=== PATIENT | male | born 1950 | race African-American/Black ===

== ENCOUNTER → 2019-10-31 | Outpatient (CLI) | payer OTHER ==
[~2019-10-31] VITALS: Ht 182.9 cm; Wt 106.6 kg
[~2019-10-31] MED LIST: ADULT LOW DOSE81 MG PO; AMITIZA 24 MCG24 MC1 PO; ASPIR 8181 MG PO; ASPIRIN325; CADUET 5 MG-401 EACH; CADUET 5 MG-401 EACH PO; DIOVAN40 MG PO; EFFIENT10 MG PO; LIVALO4 MG PO; RYTARY ER 23.71 EACH PO; RYTARY ER 48.71 EACH PO; TOPROL XL50 MG PO; VITAMIN E400 UNIT
--- NOTE | 2019-11-01 14:07 | PATH ---
[facility] [place] [address] PATHOLOGY RPT PROCEDURE Name: TERRY TURNER Room #: REG [facility] M.R.#: [id number] Admission: 10/31/19 Date of : 50 Discharge: Report #: [id number] Path Case #: [id number] [facility] Accession Number: [id number] . 01 Material submitted: . PART A: stomach - BIOPSY OF GASTRITIS TO R/O H. PYLORI PART B: esophagus - BIOPSY OF DISTAL ESOPHAGUS-BARRETTS- TO R/O DYSPLASIA. Modifiers: distal PART C: colon - POLYP AT PROXIMAL TRANSVERSE COLON. Modifiers: proximal, transverse PART D: colon - POLYP AT 60CM . 01 Clinical history: . 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 02 Diagnosis: A. Gastric biopsy, "biopsy gastritis to rule out H. pylori": - Mild chronic reactive gastropathy with mild chronic inflammation. - The immunoperoxidase stain for Helicobacter pylori is negative. . B. 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 - There is no definite evidence of dysplasia or malignancy. - See comment. . C. Colonic mucosa, "polyp at proximal transverse colon": - Fragments of tubular adenoma. - There is no evidence of high-grade dysplasia or malignancy. . D. Colonic mucosa, "polyp at 60 cm": - Fragments of tubular adenoma. - There is no evidence of high-grade dysplasia or malignancy. . 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 02 Comment: This case is also reviewed by Dr. Mara Walls. ([facility]:wet mixer; 11/01/2019) . 02 Electronically signed: . Raymon Lara MD, Pathologist NPI- [id number] . 01 [place] [address] PATHOLOGY RPT PROCEDURE Name: TERRY TURNER JR [id number] Admission: 10/31/19 Date of : 50 Discharge: Report #: [id number] Path Case #: [id number] Gross description: . A. Received in formalin labeled "Terry Turner Jr BX of gastritis," and additionally labeled on the requisition as "to rule out H. pylori," are 2 segments of chen soft tissue measuring 1.0 x 0.3 x 0 point to cm in aggregate dimensions and measuring 0.5 cm each in maximum dimension. The specimen is submitted entirely in cassette A1. . B. Received in formalin labeled "Terry Turner Jr, BX of distal esophagus," and additionally labeled on the requisition as "Nair-to rule out dysplasia," are 5 segments of chen soft tissue measuring 0.9 x 0.9 x 0.2 cm in aggregate dimensions and ranging from 0.3 to 0.5 cm in maximum dimension. The specimen is submitted entirely in cassette B1. . C. Received in formalin labeled "Terry Turner Jr, polyp at proximal transverse," are 4 segments of chen soft tissue measuring 1.0 x 1.0 x 0.5 cm in aggregate dimensions and ranging from 0.4 to 0.8 cm in maximum dimension. The specimen is submitted entirely in cassette . D. Received in formalin labeled "Terry Turner Jr, polyp at 60 cm," are 2 segments of chen soft tissue measuring 1.5 x 0.4 x 0.4 cm in aggregate dimensions and ranging from 0.7 to 0.8 cm in maximum dimension. The specimen is submitted entirely in cassette D1. (TSD; 10/31/2019) TOB/TOB 10/31/2019 2300 Local . 02 Pathologist provided ICD-10: K31.9, K29.50, K21.0, D12.3, D12.6 . 02 CPT . 260846, 123490, 441616, 284703, [id number] Specimen Comment: A courtesy copy of this report has been sent to [phone], [phone] Specimen Comment: [id number] Specimen Comment: Report sent to / DR MCKINNEY [facility]formed at: 01 [facility] [address] [facility] [address], [place] [id number] MD Mauricio Enriquez MD Phone: [phone] Performed at: 02 [facility] [address] [id number] MD Bird Mims MD Phone: [phone]
--- NOTE | 2019-11-11 10:13 | P ---
[facility] [place] [address] PROCEDURE REPORT Name: CULLEN NESBITT JR Room #: REG [facility]#: [id number] Admission: 10/31/19 Attend Phys: Isabel Reyes MD Discharge: Date of : 50 Report #: [id number] THIS REPORT FOR: //name// CC: ISABEL Reyes DATE OF SERVICE: 10/31/2019 BRIEF HISTORY: The patient is a 69-year-old male with a history of multiple colon polyps for high risk screening colonoscopy. Last colonoscopy was about 4 years ago. PREOPERATIVE DIAGNOSIS: History of multiple colon polyps. POSTOPERATIVE DIAGNOSES: 1. Colon polyps. 2. Diverticulosis coli, right and left colon. 3. Small internal hemorrhoids. MEDICATIONS: Deep sedation with propofol per anesthesia. SPECIMENS: 1. Polyp from proximal transverse colon. 2. Polyp from 60 cm. ESTIMATED BLOOD LOSS: 3 mL. PROCEDURE: Colonoscopy to cecum and terminal ileum with snare polypectomy. FINDINGS: Prior to propofol sedation, procedure of colonoscopy discussed with the patient as well as potential risks and its complications. He indicates he understands and desires to proceed. DESCRIPTION OF PROCEDURE: With the patient in left lateral decubitus position, digital examination was completed, which revealed no abnormalities. Subsequently, the Olympus video colonoscope was introduced in the rectum, advanced under direct vision to the cecum with minimal difficulty. The cecum was identified by the ileocecal valve and the appendiceal orifice. There was some residual debris in the cecum, almost all this could be removed, but some of it could not be suctioned through the scope. Within these limitations, no abnormalities were seen. At that point, the scope was slowly withdrawn and careful circumferential views were obtained. Also, we were able to visualize the distal segment of terminal ileum, which was inspected and noted to be unremarkable. As we withdrew the scope, there were limitations of the prep throughout the colon. There was a copious amount of greenish liquidy material. [facility] [address] [place] [address] PROCEDURE REPORT Name: DELICIACULLEN ALEX Room #: REG [facility].#: [id number] Admission: 10/31/19 Attend Phys: Isabel Reyes MD Discharge: Date of : 50 Report #: [id number] Much of this could be removed with suctioning, but in some places not every ____ remove. For the most part, we had reasonably good look at almost all the colon, but there were some limitations and some scattered areas. As we withdrew the scope, an 8-10 mm polyp on a narrow base was seen and removed by snare polypectomy in the proximal transverse colon. Residual amount remained which was cleaned up with biopsy forceps. The scope was further withdrawn and an occasional diverticulum was seen in the proximal colon. There was no endoscopic evidence of diverticulitis. In the left colon at 60 cm, a 5 mm polyp was seen and removed by cold snare polypectomy and recovered. The scope was further withdrawn and in the sigmoid colon, there was noted to be moderately severe sigmoid diverticular disease without endoscopic evidence of diverticulitis. The scope was withdrawn in the rectum, no abnormalities were seen. Upon retroflexion, small hemorrhoids were seen. Scope was withdrawn. The patient tolerated the procedure well. CONDITION OF THE PATIENT UPON DISCHARGE: Following procedure, the patient was drowsy, arousable, conversant and will be discharged home when fully ambulatory. INSTRUCTIONS TO THE PATIENT AND FAMILY AT THE TIME OF DISCHARGE: Two polyps removed as noted above. There were some prep limitations. We will follow up on the path. However, I would suggest return in 3 years as a small lesion could have been overlooked today because of prep limitations. His colon is modestly dilated. We will discuss with the patient with regards to the possibility constipation, use of fiber and/or MiraLax. He will otherwise return to the care of Dr. Isabel Martínez. Return to see me as needed. <ELECTRONICALLY SIGNED> By: Isabel Reyes MD 11/11/19 1013 1110 1942 Isabel Reyes MD /nt
--- NOTE | 2019-11-11 10:13 | P ---
[facility] [place] [address] PROCEDURE REPORT Name: CULLEN NESBITT Room #: REG 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 POSTOPERATIVE DIAGNOSES: 1. Nair esophagus. 2. Diffuse gastritis. MEDICATIONS: Deep sedation with propofol per anesthesia. SPECIMEN: Biopsies of Nair esophagus. ESTIMATED BLOOD LOSS: 3 mL. PROCEDURE: Esophagogastroduodenoscopy with biopsy. FINDINGS: Prior to propofol sedation, procedure of upper endoscopy was discussed with the patient as well as potential risks and its complications. He indicates he understands and desires to proceed. DESCRIPTION OF PROCEDURE: With the patient in left lateral decubitus position, the Olympus video endoscope was inserted in the cervical esophagus under direct vision without difficulty. Examination of this organ through its entire style length revealed normal esophageal mucosa down into the distal esophagus. Squamocolumnar junction was inspected. It was noted to be quite irregular in the distal 2-3 cm esophagus. In addition, just above the squamocolumnar junction were several islands of Nair type mucosa of no more than 1 cm. The mucosa was inspected with white light and narrow banded imaging. The mucosa was completely flat without evidence of ulcers, erosions, nodules, strictures or mass lesions. Random biopsies were obtained. A hiatus hernia was not seen. The scope was advanced in the stomach, was examined on end view as well as retroflexed views. There was a pattern of moderate diffuse gastritis, more so in the antrum. No ulcers or erosions were seen. Multiple biopsies were obtained. Upon retroflexion, no abnormalities were seen. The pylorus, duodenal bulb and post-coronary sweep were inspected and noted to be unremarkable. At that point, the scope was slowly withdrawn and careful circumferential views confirmed the above findings. The patient tolerated the procedure well. [address] [address] PROCEDURE REPORT Name: CULLEN NESBITT ALEX Room #: REG [facility].#: [id number] Admission: 10/31/19 Attend Phys: Mynor Reyes MD Discharge: Date of : 50 Report #: [id number] CONDITION OF THE PATIENT UPON DISCHARGE: Following procedure, the patient drowsy, aroused, conversant and will be discharged home when fully ambulatory. INSTRUCTIONS TO THE PATIENT AND FAMILY AT THE TIME OF DISCHARGE: We will follow up on the pathology. I do not believe the patient is using a PPI at this point in time. I would suggest omeprazole 20 mg daily. If there is no evidence of dysplasia, he should return in 3 years for followup endoscopy and biopsy. If dysplasia is present, he may benefit from further intervention such as radiofrequency ablation of Nair mucosa. <ELECTRONICALLY SIGNED> By: Mynor Reyes MD 11/11/19 1013 1029 1911 Mynor Reyes MD /nt
== END | disposition home or self-care (01) ==
LOC: GI 08:21
DX: Z12.11 Encounter for screening for malignant neoplasm of colon (principal); Z86.010 Personal history of colon polyps; D12.3 Benign neoplasm of transverse colon; D12.5 Benign neoplasm of sigmoid colon; K57.30 Diverticulosis of large intestine without perforation or abscess without bleeding; K64.8 Other hemorrhoids; K31.9 Disease of stomach and duodenum, unspecified; K29.50 Unspecified chronic gastritis without bleeding; K21.0 Gastro-esophageal reflux disease with esophagitis; K22.70 Barrett's esophagus without dysplasia; I10 Essential (primary) hypertension; E78.00 Pure hypercholesterolemia, unspecified; I25.2 Old myocardial infarction; E78.5 Hyperlipidemia, unspecified; G20 Parkinson's disease; Z98.890 Other specified postprocedural states; Z79.899 Other long term (current) drug therapy; Z95.1 Presence of aortocoronary bypass graft; Z95.5 Presence of coronary angioplasty implant and graft; Z87.19 Personal history of other diseases of the digestive system; Z88.0 Allergy status to penicillin; Z88.2 Allergy status to sulfonamides; Z88.8 Allergy status to other drugs, medicaments and biological substances; Z79.82 Long term (current) use of aspirin
CPT/HCPCS: 62110; 62900

== ENCOUNTER → 2020-08-22 | Outpatient (CLI) | payer OTHER | LOC: SJCVCIMAG 06-22 08:37 | PROVIDERS: ATTEND Internal Medicine Cardiovascular Disease | DX: I73.9 Peripheral vascular disease, unspecified (principal); I72.3 Aneurysm of iliac artery; I25.10 Atherosclerotic heart disease of native coronary artery without angina pectoris; I10 Essential (primary) hypertension; R94.31 Abnormal electrocardiogram [ECG] [EKG]; E78.00 Pure hypercholesterolemia, unspecified; I65.23 Occlusion and stenosis of bilateral carotid arteries; G20 Parkinson's disease; Z79.899 Other long term (current) drug therapy ==

== ENCOUNTER → 2020-08-29 | Outpatient (CLI) | payer OTHER | LOC: CAT 09:56 | PROVIDERS: ATTEND Internal Medicine Cardiovascular Disease | DX: K57.30 Diverticulosis of large intestine without perforation or abscess without bleeding (principal); I72.3 Aneurysm of iliac artery; I77.811 Abdominal aortic ectasia; M47.816 Spondylosis without myelopathy or radiculopathy, lumbar region ==

== ENCOUNTER → 2021-04-23 | Outpatient (CLI) | payer OTHER | LOC: SJCVC 10:56 | PROVIDERS: ATTEND Internal Medicine Cardiovascular Disease | DX: R94.31 Abnormal electrocardiogram [ECG] [EKG] (principal); R06.02 Shortness of breath; I10 Essential (primary) hypertension; E78.00 Pure hypercholesterolemia, unspecified; R53.83 Other fatigue; I72.3 Aneurysm of iliac artery; I65.23 Occlusion and stenosis of bilateral carotid arteries; I25.10 Atherosclerotic heart disease of native coronary artery without angina pectoris; I73.9 Peripheral vascular disease, unspecified; I25.5 Ischemic cardiomyopathy; G20 Parkinson's disease; Z95.5 Presence of coronary angioplasty implant and graft; Z79.82 Long term (current) use of aspirin; Z79.899 Other long term (current) drug therapy; Z72.89 Other problems related to lifestyle; Z88.0 Allergy status to penicillin; Z88.5 Allergy status to narcotic agent; Z88.2 Allergy status to sulfonamides ==

== ENCOUNTER → 2021-04-24 | Outpatient (CLI) | payer OTHER | LOC: SJCVCIMAG 10:11 | PROVIDERS: ATTEND Internal Medicine Cardiovascular Disease | DX: I49.3 Ventricular premature depolarization (principal); E78.5 Hyperlipidemia, unspecified; I25.10 Atherosclerotic heart disease of native coronary artery without angina pectoris; I73.9 Peripheral vascular disease, unspecified; R06.00 Dyspnea, unspecified; R53.83 Other fatigue; I25.5 Ischemic cardiomyopathy; I10 Essential (primary) hypertension; R42 Dizziness and giddiness; R10.9 Unspecified abdominal pain; R55 Syncope and collapse; Z95.1 Presence of aortocoronary bypass graft; Z79.82 Long term (current) use of aspirin; Z79.899 Other long term (current) drug therapy; Z88.0 Allergy status to penicillin; Z88.5 Allergy status to narcotic agent; Z88.2 Allergy status to sulfonamides ==